=== PATIENT | female | born 1980 | race Caucasian/White ===

== ENCOUNTER 2018-01-18 13:12 | Outpatient (RCR) | payer BC ==
[2018-01-08] MEDS: IRON SUCROSE 200 MG/10 ML (VENOFER) VIAL IV SCH (13:06)
[2018-01-08 13:07] VITALS: BP 107/75
[2018-01-11] MEDS: IRON SUCROSE 200 MG/10 ML (VENOFER) VIAL IV SCH (13:25)
[2018-01-11 13:50] VITALS: BP 109/71
[2018-01-13] MEDS: IRON SUCROSE 200 MG/10 ML (VENOFER) VIAL IV SCH (13:31)
[2018-01-13 13:32] VITALS: BP 104/70
[2018-01-15] MEDS: IRON SUCROSE 200 MG/10 ML (VENOFER) VIAL IV SCH (13:24)
[2018-01-15 14:00] VITALS: BP 104/69
[~2018-01-18] VITALS: Ht 172.7 cm; Wt 59.0 kg
[2018-01-18 13:12] VITALS: BP 108/63
[2018-01-18] MEDS ORDERED: IRON SUCROSE 200 MG/10 ML (VENOFER) VIAL IV ONE (13:13)
[2018-01-18] MEDS: IRON SUCROSE 200 MG/10 ML (VENOFER) VIAL IV SCH (13:22)
== END 2018-01-18 14:16 | disposition home or self-care (01) ==
LOC: SDC 13:12
PROVIDERS: ATTEND Internal Medicine
DX: D64.9 Anemia, unspecified (principal)
CPT/HCPCS: 96365

== ENCOUNTER → 2019-01-07 | Outpatient (CLI) | payer BC ==
--- NOTE | 2019-01-07 11:51 | Diagnostic Imaging Report ---
INDICATION: Routine screening. COMPARISON: No prior mammograms are available for comparison. This is a baseline study. 2-D and 3-D bilateral screening mammography was performed. The current study was also evaluated with a Computer Aided Detection (CAD) system. 3-D tomosynthesis was also performed and reviewed. FINDINGS: Both breasts are heterogeneously dense, limiting the sensitivity of mammography. There is a density in the upper aspect of the left breast in the region of the axillary tail, only seen on the MLO view. Additional views are recommended. Right breast is unremarkable. No suspicious calcifications are seen. Axillae are unremarkable. IMPRESSION: Left breast density. Additional views including spot compression, ML as well as exaggerated CC views are recommended for further evaluation. ACR BI-RADS Category 0: Incomplete. (Needs additional imaging evaluation). Result letter will be mailed to the patient. Note: At least 10% of breast cancer is not imaged by mammography. Dictated by: Dictated on workstation # [id number]
== END ==
LOC: RAD 09:34
PROVIDERS: ATTEND Internal Medicine
DX: Z12.31 Encounter for screening mammogram for malignant neoplasm of breast (principal)
CPT/HCPCS: 77067

== ENCOUNTER 2020-02-14 11:21 | Outpatient (RCR) | payer OTHER ==
[2020-02-05 11:45] VITALS: BP 101/58
[~2020-02-14] VITALS: Ht 172 cm; Wt 59.0 kg
[~2020-02-14 11:21] MED LIST: FERRIC CARBOXYMALTOSE INJ 750 MG in NS (IVPB) 250 ML IV NR
[2020-02-14] MEDS ORDERED: FERRIC CARBOXYMALTOSE INJ 750 MG in NS (IVPB) 250 ML IV NR (11:25)
[2020-02-14 12:04] VITALS: BP 96/45
== END 2020-05-07 | disposition home or self-care (01) ==
LOC: SDC 11:21
PROVIDERS: ATTEND Internal Medicine
DX: E61.1 Iron deficiency (principal)
CPT/HCPCS: 96365

== ENCOUNTER → 2022-12-04 | Outpatient (CLI) | payer BC, OTHER ==
--- NOTE | 2022-12-04 13:45 | Diagnostic Imaging Report ---
Indication: Routine screening. Comparison is made with prior mammogram 01/07/2019. 2-D and 3-D bilateral screening mammography was performed with CAD. Both breasts are heterogeneously dense, limiting the sensitivity of mammography. A rounded density has developed in the retroareolar left breast. The right breast is unremarkable. No malignant-appearing microcalcifications are seen. Axillae are unremarkable. IMPRESSION: Rounded density retroareolar left breast, perhaps a cyst. Further evaluation with ultrasound is recommended. BI-RADS Category 0. ACR BI-RADS Category 0: Incomplete. (Needs additional imaging evaluation). Result letter will be mailed to the patient. Note: At least 10% of breast cancer is not imaged by mammography. Dictated by: Dictated on workstation # [id number]
== END ==
LOC: RAD 09:50
PROVIDERS: ATTEND Internal Medicine
DX: Z12.31 Encounter for screening mammogram for malignant neoplasm of breast (principal); R92.30 Dense breasts, unspecified
CPT/HCPCS: 77063; 77067

== ENCOUNTER → 2022-12-11 | Outpatient (CLI) | payer BC, OTHER ==
--- NOTE | 2022-12-11 10:35 | Diagnostic Imaging Report ---
Indication: Abnormal mammogram. States performed for further evaluation. Correlation is made with screening mammogram from 12/04/2022. Sonographic interrogation of the retroareolar left breast was performed. There is a circumscribed hypoechoic solid-appearing mass in the retroareolar left breast measuring 1.2 x 1.4 x 0.9 cm. This does show some posterior acoustic enhancement. No internal vascularity is identified but features are most suggestive of a fibroadenoma. This does correlate with the mammographic density. No other masses are identified. IMPRESSION: BI-RADS Category 3 Hypoechoic solid nodule in the retroareolar left breast accounting for the mammographic density. This has features most suggestive of a fibroadenoma. Follow-up ultrasound in 6 months is recommended to show continued stability. ACR BI-RADS Category 3: Probably benign findings. Dictated by: Dictated on workstation # [id number]
== END ==
LOC: RAD 07:54
PROVIDERS: ATTEND Internal Medicine
DX: N63.20 Unspecified lump in the left breast, unspecified quadrant (principal)

== ENCOUNTER 2023-01-14 11:47 | Outpatient (CLI) | payer OTHER ==
[~2023-01-14] VITALS: Ht 172.7 cm; Wt 59.0 kg
[2023-01-14 11:55] VITALS: BP 102/61
[2023-01-14] MEDS ORDERED: IRON DEXTRAN 25 MG/NS 6.25 ML TOTAL VOLUME IV ONE ×3 (12:15)
[2023-01-14] MEDS ORDERED: IRON DEXTRAN 1,000 MG/NS 250 ML IVPB IV ONE ×2 (12:30)
== END 2023-01-14 13:47 | disposition home or self-care (01) ==
LOC: SDC 11:47
PROVIDERS: ATTEND Internal Medicine
DX: E61.1 Iron deficiency (principal)
CPT/HCPCS: 96365